=== PATIENT | male | born 1970 | race African-American/Black ===

== ENCOUNTER 2016-12-07 09:05 | Day surgery (SDC) | payer OTHER ==
[~2016-12-07 09:05] MED LIST: HYDROmorphone HCL 2 MG/ML VIAL IV PRN; RINGERS SOLUTION,LACTATED 1,000 ML IV PRN; ceFAZolin SODIUM 1 GM VIAL IV PRN; oxyCODONE HCL/ACETAMINOPHEN 1 TAB TABLET PO PRN
--- OUTSIDE RECORDS SUMMARY | 2016-12-07 09:09 | XMS REPORT | Continuity of Care Document ---
:1970 Author Organization [facility] ([facility]) Address [address] [place] [address] Phone [phone] Care Team Providers Name Role Phone Provider, No-Primary Care Primary Care Provider Unavailable Source Comments This disclosure is being made pursuant to the Care Everywhere program, applicable federal and state laws, and may not contain all informaitonavailable regarding this patient.[facility] ([facility]) Active Allergies and Adverse Reactions No Active Allergies Current Medications Not on file Active Problems Problem Noted Date Follow-up examination, following unspecified surgery 10/08/2002 Old disruption of anterior cruciate ligament 09/24/2002 Pain in joint, lower leg 09/05/2002 Social History Tobacco Use Types Packs/Day Years Used Date Never Assessed Last Filed Vital Signs Vital Sign Reading Time Taken Blood Pressure - - Pulse - - Temperature - - Respiratory Rate - - Height 1.549 m (5' 1") 09/20/2002 6:24 PM [employer] Weight 70.498 kg (155 lb 6.7 oz) 09/20/2002 6:24 PM [employer] Body Mass Index 29.38 09/20/2002 6:24 PM [employer] Oxygen Saturation - - Plan of Care Health Maintenance Due Date Last Done Comments Hepatitis B Vaccine (1 of 3 - Primary Series) 1970 Tdap Vaccine 1982 Lipid Disorder Screening 1989 MMR Vaccine 1989 Td Vaccine 1989 Influenza Vaccine: Seasonal (#1) 03/21/2016 Results from Last 3 Months Not on file
[2016-12-07] MEDS ORDERED: RINGERS SOLUTION,LACTATED 1,000 ML IV ONE (09:40)
[2016-12-07] MEDS ORDERED: BUPIVACAINE HCL 50 ML VIAL IJ ONE ×2 (10:55)
--- NOTE | 2016-12-07 12:25 | OR ---
Operative Report - Dictated Report Narrative: Date: 12/07/2016 Surgeon: Gino Clay M.D. 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 They've gone on to heal the fracture however had notable symptoms related to the implants and wished to have these removed.. They were seen in the clinic and discuss the options for treatment. He wished to proceed with surgical removal of deep implants. The risks and benefits alternatives were discussed. Risks of , blood clots, bleeding, infection, nerve/tendon/ blood vessel injury, persistent pain, wound complications, and need for additional procedures were discussed. Consent was obtained in the clinic. Procedure: After marking the correct extremity in the preoperative holding area, the patient was taken to the operating room. A timeout was performed. IV antibiotics consisting of Ancef were administered. Adequate anesthesia was placed. The extremity was then prepped and draped in standard sterile fashion. Utilizing the prior incision, sharp dissection was carried through the skin after exsanguinating extremity and inflating tourniquet. Careful dissection was carried down to the implants. The implants were then removed without complication. This included the distal 2 screws as well as the most proximal screw in the nail. There did not appear to be any complications related to the fracture nor any signs of infection. Once all the implants were removed, the wound was thoroughly irrigated. The soft tissues were closed in a layered fashion with 4-0 Vicryl and the skin was closed with 3-0 nylon. Final images were obtained with mini C-arm. Sterile dressings of Xeroform, 4 x 4, soft roll , Gennaro wrap. Percent Marcaine without epinephrine was infused into the skin edges prior to placing dressings. All sponge, needle, sharp, and instrument counts were correct prior to closing the wound. The patient was awoken and transferred to the postanesthesia care in stable condition.
[2016-12-07 14:51] VITALS: BP 122/82
== END 2016-12-07 09:06 | disposition home or self-care (01) ==
LOC: AMB 09:05
PROVIDERS: ATTEND Orthopaedic Surgery
PROC: 0QPG04Z Removal of Internal Fixation Device from Right Tibia, Open Approach (ICD-10-PCS; principal; 2016-12-07 11:30)
DX: T84.84XA Pain due to internal orthopedic prosthetic devices, implants and grafts, initial encounter (principal); M79.661 Pain in right lower leg; Z68.21 Body mass index [BMI] 21.0-21.9, adult